=== PATIENT | female | born 1950 | race African-American/Black ===

== ENCOUNTER → 2017-03-11 | Outpatient (CLI) | payer MEDICARE, BC | END | disposition home or self-care (01) | LOC: US 14:00 | DX: M47.896 Other spondylosis, lumbar region (principal); M48.061 Spinal stenosis, lumbar region without neurogenic claudication; M25.78 Osteophyte, vertebrae; R10.9 Unspecified abdominal pain | CPT/HCPCS: 72100; 76770 ==

== ENCOUNTER 2020-03-18 10:00 | Inpatient (IN) | payer MEDICARE, BC ==
[~2020-03-18] VITALS: Ht 175.3 cm; Wt 107.7 kg
--- NOTE | 2020-03-18 10:26 | ED.ADGEN ---
Past Medical History Past Medical History: High Cholesterol, Hypertension Past Surgical History: Cholecystectomy, Hysterectomy Smoking Status: Never Smoker Alcohol Use: Rarely General Adult EDM: Chief Complaint: DIZZY/LIGHT HEADED HPI: HPI: Patient is a 69 year old female who arrives ambulatory to the emergency depart ment complaining of dizziness and palpitations just prior to arrival. Patient reports that 22 hours yesterday evening she noticed that she felt dizzy as she could not maintain her bearings. The patient reportedly awoke today and states she felt exactly the same way. Patient states she is alternate between feeling dizzy and lightheaded during this time. Despite this she denies any history of chest pain. She further denies feeling short of breath. After placing the patient on the monitor it does appear the patient is in atrial fibrillation with rapid ventricular response which is new for her. The patient denies any history of focal weakness, sensory deficit or neurological change otherwise. She further denies any history of headache or recent illness. She is awake, alert and nontoxic-appearing. Review of Systems: Review of Systems: Constitutional: Denies fever or chills. [] Eyes: Denies change in visual acuity. [] HENT: Denies nasal congestion or sore throat. [] Respiratory: Denies cough or shortness of breath. [] Cardiovascular: Denies chest pain or edema. [] GI: Denies abdominal pain, nausea, vomiting, bloody stools or diarrhea. [] : Denies dysuria. [] Musculoskeletal: Denies back pain or joint pain. [] Integument: Denies rash. [] Neurologic: Reports to feeling dizzy/lightheaded. Denies headache, focal weakness or sensory changes. [] Endocrine: Denies polyuria or polydipsia. [] Lymphatic: Denies swollen glands. [] Psychiatric: Denies depression or anxiety. [] Family History: Family History: Noncontributory Current Medications: Current Medications Medications (Trade) Dose Ordered Sig/Jennifer Start Time Stop Time Status Last Admin Dose Admin Diltiazem HCl (Cardizem Iv Push) 20 mg 1X ONCE 03/18/20 10:45 03/18/20 10:46 DC 03/18/20 10:36 20 MG Diltiazem HCl 125 mg/Sodium Chloride 125 ml @ 10 mls/hr 1X ONCE 03/18/20 09:45 03/18/20 22:14 03/18/20 10:43 10 MLS/HR Enoxaparin Sodium (Lovenox 100mg Syringe) 110 mg 1X ONCE 03/18/20 11:15 03/18/20 11:16 UNV Ondansetron HCl (Zofran) 4 mg PRN Q8HRS PRN 03/18/20 11:15 03/19/20 11:14 UNV Allergies: Allergies: Allergies Coded Allergies Type Severity Reaction Last Updated Verified No Known Drug Allergies 03/18/20 No Physical Exam: PE: Constitutional: Well developed, well nourished, no acute distress, non-toxic appearance. [] HENT: Normocephalic, atraumatic, bilateral external ears normal, oropharynx moist, no oral exudates, nose normal. [] Eyes: PERRLA, EOMI, conjunctiva normal, no discharge. [] Neck: Normal range of motion, no tenderness, supple, no stridor. [] Cardiovascular: Tachycardia with a regular rhythm. no rubs or murmur [] Lungs & Thorax: Bilateral breath sounds clear to auscultation [] Abdomen: Bowel sounds normal, soft, no tenderness, no masses, no pulsatile masses. [] Skin: Warm, dry, no erythema, no rash. [] Back: No tenderness, no CVA tenderness. [] Extremities: No tenderness, no cyanosis, no clubbing, ROM intact, no edema. [] Neurologic: Alert and oriented X 3, normal motor function, normal sensory function, no focal deficits noted. [] Psychologic: Affect normal, judgement normal, mood normal. [] Current Patient Data: Labs: Laboratory Tests Test 03/18/20 10:20 White Blood Count 7.3 x10^3/uL (4.0-11.0) Red Blood Count 4.69 x10^6/uL (3.50-5.40) Hemoglobin 14.0 g/dL (12.0-15.5) Hematocrit 41.4 % (36.0-47.0) Mean Corpuscular Volume 88 fL (79-100) Mean Corpuscular Hemoglobin 30 pg (25-35) Mean Corpuscular Hemoglobin Concent 34 g/dL (31-37) Red Cell Distribution Width 13.7 % (11.5-14.5) Platelet Count 275 x10^3/uL (140-400) Neutrophils (%) (Auto) 79 % (31-73) H Lymphocytes (%) (Auto) 14 % (24-48) L Monocytes (%) (Auto) 6 % (0-9) Eosinophils (%) (Auto) 0 % (0-3) Basophils (%) (Auto) 1 % (0-3) Neutrophils # (Auto) 5.8 x10^3/uL (1.8-7.7) Lymphocytes # (Auto) 1.0 x10^3/uL (1.0-4.8) Monocytes # (Auto) 0.4 x10^3/uL (0.0-1.1) Eosinophils # (Auto) 0.0 x10^3/uL (0.0-0.7) Basophils # (Auto) 0.1 x10^3/uL (0.0-0.2) Prothrombin Time 13.5 SEC (11.7-14.0) Prothrombin Time INR 1.1 (0.8-1.1) Sodium Level 142 mmol/L (136-145) Potassium Level 3.9 mmol/L (3.5-5.1) Chloride Level 106 mmol/L (98-107) Carbon Dioxide Level 24 mmol/L (21-32) Anion Gap 12 (6-14) Blood Urea Nitrogen 10 mg/dL (7-20) Creatinine 0.9 mg/dL (0.6-1.0) Estimated GFR (Cockcroft-Gault) 74.9 BUN/Creatinine Ratio 11 (6-20) Glucose Level 131 mg/dL (70-99) H Calcium Level 9.8 mg/dL (8.5-10.1) Total Bilirubin 0.5 mg/dL (0.2-1.0) Aspartate Amino Transferase (AST) 18 U/L (15-37) Alanine Aminotransferase (ALT) 17 U/L (14-59) Alkaline Phosphatase 53 U/L (46-116) Troponin I Quantitative < 0.017 ng/mL (0.000-0.055) LV-Zhw-J-Type Natriuretic Peptide 782 pg/mL (0-124) H Total Protein 7.4 g/dL (6.4-8.2) Albumin 3.9 g/dL (3.4-5.0) Albumin/Globulin Ratio 1.1 (1.0-1.7) Laboratory Tests 03/18/20 10:20 Laboratory Tests 03/18/20 10:20 Vital Signs: Vital Signs Date Time Temp Pulse Resp B/P (MAP) Pulse Ox O2 Delivery O2 Flow Rate FiO2 03/18/20 10:36 124 144/90 03/18/20 10:14 99.0 20 97 Room Air 99.0 EKG: EKG: [] EKG was obtained at 1008 hrs. It does appear that the patient has atrial fibrillation with rapid ventricular response with a ventricular rate of 145 bpm. There does appear to be some is T wave depression in the lateral leads however this may be related to ventricular strain relative to the cardiac dysrhythmia. There are no signs of ectopy or ST/T wave elevation. Heart Score: HEART Score for Chest Pain: HEART Score for Chest Pain Response (Comments) Value History Slighlty/Non-Suspicious 0 ECG Nonspecific Repolarizatio 1 Age < 45 0 Risk Factors 1 or 2 Risk Factors 1 Troponin < Normal Limit 0 Total 2 Risk Factors: Risk Factors: DM, Current or recent (<one month) smoker, HTN, HLP, family history of CAD, obesity. Risk Scores: Score 0 - 3: 2.5% MACE over next 6 weeks - Discharge Home Score 4 - 6: 20.3% MACE over next 6 weeks - Admit for Clinical Observation Score 7 - 10: 72.7% MACE over next 6 weeks - Early Invasive Strategies Radiology/Procedures: Radiology/Procedures: [] Impression: [facility] [address], [place] [id number] IMAGING REPORT Signed PATIENT: HUBER MESSINA ACCOUNT: [id number] : 1950 LOCATION: ER AGE: 69 SEX: F EXAM STATUS: PRE ER ORD. PHYSICIAN: NURY SETH DO REASON: Palpitations PROCEDURE: PORTABLE CHEST 1V XR CHEST 1V History: Reason: Palpitations / Spl. Instructions: / History: Comparison: None. Findings: No consolidation or pleural effusion. Normal heart size. No pneumothorax. Impression: 1. No acute cardiopulmonary process. Electronically signed by: Herbert Plascencia DO (03/18/2020 10:38 AM) [id number] DICTATED and SIGNED BY: HERBERT PLASCENCIA DO DATE: 03/18/20 [id number] 0 Course & Med Decision Making: Course & Med Decision Making Pertinent Labs and Imaging studies reviewed. (See chart for details) [] Dragon Disclaimer: Dragon Disclaimer: This electronic medical record was generated, in whole or in part, using a voice recognition dictation system. Departure Departure Impression: Primary Impression: Atrial fibrillation with rapid ventricular response Disposition: ADMITTED INPT THIS HOSP Admitting Physician: Sara Huynh Condition: IMPROVED Referrals: SARA HUYNH MD (PCP) NURY SETH DO Mar 18, 2020 10:25
[2020-03-18 10:28] LABS: BASO # 0.1 x10^3/uL (0.0-0.2); BASO % 1 % (0-3); EOS % 0 % (0-3); HEMATOCRIT 41.4 % (36.0-47.0); LYMPH % 14 % (24-48); MEAN CORPUSCULAR HEMOGLOBIN 30 pg (25-35); MEAN CORPUSCULAR HGB CONC 34 g/dL (31-37); MEAN CORPUSCULAR VOLUME 88 fL (79-100); MONO # 0.4 x10^3/uL (0.0-1.1); MONO % 6 % (0-9); NEUT # 5.8 x10^3/uL (1.8-7.7); NEUT % 79 % (31-73); PLATELET COUNT 275 x10^3/uL (140-400); RED BLOOD COUNT 4.69 x10^6/uL (3.50-5.40); RED CELL DISTRIBUTION WIDTH 13.7 % (11.5-14.5); WHITE BLOOD COUNT 7.3 x10^3/uL (4.0-11.0)
[2020-03-18 10:39] LABS: CALCIUM 9.8 mg/dL (8.5-10.1); CREATININE 0.9 mg/dL (0.6-1.0); GFR 74.9; POTASSIUM 3.9 mmol/L (3.5-5.1)
--- NOTE | 2020-03-18 10:41 | RAD ---
XR CHEST 1V History: Reason: Palpitations / Spl. Instructions: / History: Comparison: None. Findings: No consolidation or pleural effusion. Normal heart size. No pneumothorax. Impression: 1. No acute cardiopulmonary process. Electronically signed by: Herbert Plascencia DO (03/18/2020 10:38 AM) [id number]
[2020-03-18 10:44] LABS: PROTHROMBIN TIME PATIENT 13.5 SEC (11.7-14.0)
[2020-03-18 10:45] LABS: ALBUMIN 3.9 g/dL (3.4-5.0); ALBUMIN/GLOBULIN RATIO 1.1 (1.0-1.7); TOTAL BILIRUBIN 0.5 mg/dL (0.2-1.0); TOTAL PROTEIN 7.4 g/dL (6.4-8.2)
[2020-03-18] MEDS ORDERED: ONDANSETRON PF 4 MG/2 ML VIAL. IV PRN (11:15)
[2020-03-18 11:45] VITALS: BP 168/101
[2020-03-18 12:45] VITALS: BP 165/85
--- NOTE | 2020-03-18 12:47 | PDOC2 ---
DANNIELLE DAVALOS INSURANCE HEALTHCARE CONSULTANT 03/18/20 1247: CARDIAC CONSULT DATE OF CONSULT Date of Consult DATE: 03/18/20 TIME: 12:34 REASON FOR CONSULT Reason for Consult: AFIB with RVR REFERRING PHYSICIAN Referring Physician: Dr. Artis SOURCE Source: Chart review, Patient HISTORY OF PRESENT ILLNESS HISTORY OF PRESENT ILLNESS This is a 69 yo female who presented secondary to dizziness. Patient reports that she began feeling dizzy last night. is at home with Alzheimer's. Is under a lot of daily stress caring for him. He took a fall last night, which was quite stressful for her. Got him situated and eventually laid down. Began feeling dizzy, lightheaded. Denies any palpitations. Laid there for awhile and continued to feel dizzy. Call [id number], who is retired MD. He took her blood pressure and was noted in the 190 range. Encouraged her to go to the ED for further evaluation and treatment. Was noted in AFIB with RVR upon arrival. No previous history of AFIB known. Does report having occasional, brief episodes of dizziness over the last several weeks, but nothing significant. Cardizem gtt initiated in ED. Remains in AFIB, but rate controlled. Dizziness has resolved. PAST MEDICAL HISTORY Cardiovascular: HTN, Hyperlipidemia Pulmonary: Asthma PAST SURGICAL HISTORY Past Surgical History: Hysterectomy FAMILY HISTORY Family History: Heart Disease SOCIAL HISTORY Smoke: No ALCOHOL: occassional Drugs: None Lives: with Family CURRENT MEDICATIONS CURRENT MEDICATIONS Current Medications Medications (Trade) Dose Ordered Sig/Jennifer Route PRN Reason Start Time Stop Time Status Last Admin Dose Admin Diltiazem HCl (Cardizem Iv Push) 20 mg 1X ONCE IVP 03/18/20 10:45 03/18/20 10:46 DC 03/18/20 10:36 Diltiazem HCl 125 mg/Sodium Chloride 125 ml @ 10 mls/hr 1X ONCE IV 03/18/20 09:45 03/18/20 22:14 03/18/20 10:43 Enoxaparin Sodium (Lovenox 120mg Syringe) 110 mg 1X ONCE SQ 03/18/20 11:15 03/18/20 11:16 DC 03/18/20 11:31 ALLERGIES ALLERGIES: Coded Allergies: No Known Drug Allergies (Unverified , 03/18/20) ROS Review of System 14 point ROS conducted with pertinent positives noted above in HPI. PHYSICAL EXAM General: Alert, Oriented X3, Cooperative, No acute distress HEENT: Atraumatic Lungs: Clear to auscultation Heart: Other (IRRR; tele AFIB, rate controlled ) Abdomen: Soft, No tenderness Extremities: No edema, Normal pulses Skin: No significant lesion Neuro: Normal speech, Sensation intact Psych/Mental Status: Mental status NL, Mood NL MUSCULOSKELETAL: Osteoarthritic changes both hands VITALS/I&O VITALS/I&O: Vital Signs Date Time Temp Pulse Resp B/P (MAP) Pulse Ox O2 Delivery O2 Flow Rate FiO2 03/18/20 11:45 98.6 87 14 168/101 (123) 99 Room Air 98.6 LABS Lab: Laboratory Tests Test 03/18/20 10:20 White Blood Count 7.3 x10^3/uL (4.0-11.0) Red Blood Count 4.69 x10^6/uL (3.50-5.40) Hemoglobin 14.0 g/dL (12.0-15.5) Hematocrit 41.4 % (36.0-47.0) Mean Corpuscular Volume 88 fL (79-100) Mean Corpuscular Hemoglobin 30 pg (25-35) Mean Corpuscular Hemoglobin Concent 34 g/dL (31-37) Red Cell Distribution Width 13.7 % (11.5-14.5) Platelet Count 275 x10^3/uL (140-400) Neutrophils (%) (Auto) 79 % (31-73) H Lymphocytes (%) (Auto) 14 % (24-48) L Monocytes (%) (Auto) 6 % (0-9) Eosinophils (%) (Auto) 0 % (0-3) Basophils (%) (Auto) 1 % (0-3) Neutrophils # (Auto) 5.8 x10^3/uL (1.8-7.7) Lymphocytes # (Auto) 1.0 x10^3/uL (1.0-4.8) Monocytes # (Auto) 0.4 x10^3/uL (0.0-1.1) Eosinophils # (Auto) 0.0 x10^3/uL (0.0-0.7) Basophils # (Auto) 0.1 x10^3/uL (0.0-0.2) Prothrombin Time 13.5 SEC (11.7-14.0) Prothrombin Time INR 1.1 (0.8-1.1) Activated Partial Thromboplast Time 30 SEC (24-38) Sodium Level 142 mmol/L (136-145) Potassium Level 3.9 mmol/L (3.5-5.1) Chloride Level 106 mmol/L (98-107) Carbon Dioxide Level 24 mmol/L (21-32) Anion Gap 12 (6-14) Blood Urea Nitrogen 10 mg/dL (7-20) Creatinine 0.9 mg/dL (0.6-1.0) Estimated GFR (Cockcroft-Gault) 74.9 BUN/Creatinine Ratio 11 (6-20) Glucose Level 131 mg/dL (70-99) H Calcium Level 9.8 mg/dL (8.5-10.1) Total Bilirubin 0.5 mg/dL (0.2-1.0) Aspartate Amino Transferase (AST) 18 U/L (15-37) Alanine Aminotransferase (ALT) 17 U/L (14-59) Alkaline Phosphatase 53 U/L (46-116) Troponin I Quantitative < 0.017 ng/mL (0.000-0.055) WG-Bne-B-Type Natriuretic Peptide 782 pg/mL (0-124) H Total Protein 7.4 g/dL (6.4-8.2) Albumin 3.9 g/dL (3.4-5.0) Albumin/Globulin Ratio 1.1 (1.0-1.7) Laboratory Tests 03/18/20 10:20 Laboratory Tests 03/18/20 10:20 ASSESSMENT/PLAN ASSESSMENT/PLAN 1. Dizziness; most probable secondary to RVR 2. New onset AFIB with RVR; remain in AFIB, rate controlled on Cardizem gtt 3. Hypertension; mildly elevated 4. Hyperlipidemia 5. Elevated glucose Recommendations Start oral Cardizem, unless significant LV dysfunction is noted. Titrate off Cardizem gtt Echo to assess LV systolic function TSH, lipids, A1C [id number] 3 correlating with at 3.2% risk for stroke per year. Would recommend OAC with Eliquis for stroke prophylaxis. R/b/a discussed with patient and she is agreeable Outpatient cardioversion following 3-4 weeks of OAC if patient remains in AFIb Consider outpatient ischemic evaluation Will monitor overnight Supportive care AMAN POWELL MD 03/18/20 1833: CARDIAC CONSULT ASSESSMENT/PLAN ASSESSMENT/PLAN Patient seen and examined I agree with our nurse practitioners plan as above. New onset AFIB with RVR; remains in AFIB, rate controlled on Cardizem gtt, changing to oral Cardizem. Echocardiogram today. TSH. Anticoagulation. Possible future cardioversion. Hypertension; mildly elevated. Oral Cardizem as above. Hyperlipidemia. Continue medications. Check lipids. DANNIELLE DAVALOS APRN Mar 18, 2020 12:47 AMAN POWELL MD Mar 18, 2020 18:33
[2020-03-18 13:18] LABS: CHOLESTEROL/HDL RATIO 2.5
[2020-03-18] MEDS ORDERED: RAMI2.5C41 PO (14:47)
[2020-03-18] MEDS ORDERED: HYDR12.575 PO (14:47)
[2020-03-18] MEDS ORDERED: ATOR10TA PO (14:47)
[2020-03-18 15:00] VITALS: BP 175/84
--- NOTE | 2020-03-18 16:17 | EKG ---
[address] [place] [address] Test Date: 2020-03-18 Test Time: 10:08:19 Pat Name: HUBER MESSINA Department: Room: Gender: F Disc Inspector: : 1950 Requested By: NURY SETH Order Number: [id number] Reading MD: Measurements Intervals [place] Rate: 145 P: DE: QRS: 24 QRSD: 72 T: -90 QT: 278 QTc: 434 Interpretive Statements IRREGULAR RHYTHM, NO P-WAVE FOUND ST & T ABNORMALITY, CONSIDER LATERAL ISCHEMIA OR LEFT VENTRICULAR STRAIN INFEROLATERAL ISCHEMIA OR LEFT VENTRICULAR STRAIN ABNORMAL ECG RI6.01 No previous ECG available for comparison
[2020-03-18] MEDS ORDERED: ANTI-COAG MONITOR BY PHARMACY. MC PRN (16:45)
[2020-03-18] MEDS: hydroCHLOROthiazide 12.5 MG CAPSULE PO SCH (17:25)
[2020-03-18 19:00] VITALS: BP 169/94
--- NOTE | 2020-03-18 19:20 | NUR ---
Pt in bed assessment completed vss poc explained pt denied pain will resume care and continue to monitor pt.Call light in reach.
[2020-03-18] MEDS ORDERED: ATORVASTATIN CALCIUM 10 MG TABLET. PO SCH (21:00)
[2020-03-18] MEDS ORDERED: APIXABAN 5 MG TABLET. PO SCH (21:00)
[2020-03-18] MEDS: APIXABAN 5 MG TABLET. PO SCH (21:18)
[2020-03-18 23:00] VITALS: BP 178/98
--- NOTE | 2020-03-18 23:49 | NUR ---
Call placed to re: pt bp 178/98
[2020-03-19] MEDS ORDERED: LISINOPRIL 5 MG TABLET. PO ONE (00:15)
[2020-03-19 01:09] LABS: HEMOGLOBIN A1C 5.9 % (4.8-5.6)
[2020-03-19 02:48] VITALS: BP 156/97
[2020-03-19 05:31] LABS: BASO # 0.1 x10^3/uL (0.0-0.2); BASO % 1 % (0-3); EOS % 1 % (0-3); HEMATOCRIT 39.8 % (36.0-47.0); HEMOGLOBIN 13.4 g/dL (12.0-15.5); LYMPH % 29 % (24-48); MEAN CORPUSCULAR HEMOGLOBIN 30 pg (25-35); MEAN CORPUSCULAR HGB CONC 34 g/dL (31-37); MEAN CORPUSCULAR VOLUME 88 fL (79-100); MONO # 0.6 x10^3/uL (0.0-1.1); MONO % 9 % (0-9); NEUT # 4.2 x10^3/uL (1.8-7.7); NEUT % 61 % (31-73); PLATELET COUNT 276 x10^3/uL (140-400); RED BLOOD COUNT 4.52 x10^6/uL (3.50-5.40); RED CELL DISTRIBUTION WIDTH 13.9 % (11.5-14.5); WHITE BLOOD COUNT 6.8 x10^3/uL (4.0-11.0)
[2020-03-19 05:58] LABS: CALCIUM 9.2 mg/dL (8.5-10.1); CREATININE 0.8 mg/dL (0.6-1.0); GFR 85.8; POTASSIUM 3.5 mmol/L (3.5-5.1)
[2020-03-19 07:00] VITALS: BP 138/72
--- NOTE | 2020-03-19 08:36 | PDOC ---
PROGRESS NOTES Date of Service: DATE: 03/19/20 TIME: 08:36 Objective Objective Vital Signs Date Time Temp Pulse Resp B/P (MAP) Pulse Ox O2 Delivery O2 Flow Rate FiO2 03/19/20 08:00 Room Air 03/19/20 02:48 98.6 87 16 156/97 (116) 96 98.6 Intake and Output 03/19/20 06:59 Intake Total 1200 ml Output Total 300 ml Balance 900 ml Intake Oral 1200 ml Output Urine Total 300 ml # Voids 2 Physical Exam Abdomen: Soft, No tenderness Heart: Other (IRRR; tele AFIB, rate controlled ) Extremities: No edema, Normal pulses General: Alert, Oriented X3, Cooperative, No acute distress HEENT: Atraumatic Lungs: Clear to auscultation MUSCULOSKELETAL: Osteoarthritic changes both hands Neuro: Normal speech, Sensation intact Psych/Mental Status: Mental status NL, Mood NL Skin: No significant lesion Diagnosis Problem List Problems Medical Problems: (1) Atrial fibrillation with rapid ventricular response Status: Acute Assessment Assessment Problems Medical Problems: (1) Atrial fibrillation with rapid ventricular response Status: Acute Plan Plan of Care Problems Medical Problems: (1) Atrial fibrillation with rapid ventricular response Status: Acute Comment Review of Relevant I have reviewed the following items poncho (where applicable) has been applied. Labs Laboratory Tests Test 03/18/20 10:20 03/18/20 10:25 03/18/20 13:10 03/18/20 16:45 White Blood Count 7.3 x10^3/uL (4.0-11.0) Red Blood Count 4.69 x10^6/uL (3.50-5.40) Hemoglobin 14.0 g/dL (12.0-15.5) Hematocrit 41.4 % (36.0-47.0) Mean Corpuscular Volume 88 fL (79-100) Mean Corpuscular Hemoglobin 30 pg (25-35) Mean Corpuscular Hemoglobin Concent 34 g/dL (31-37) Red Cell Distribution Width 13.7 % (11.5-14.5) Platelet Count 275 x10^3/uL (140-400) Neutrophils (%) (Auto) 79 % (31-73) Lymphocytes (%) (Auto) 14 % (24-48) Monocytes (%) (Auto) 6 % (0-9) Eosinophils (%) (Auto) 0 % (0-3) Basophils (%) (Auto) 1 % (0-3) Neutrophils # (Auto) 5.8 x10^3/uL (1.8-7.7) Lymphocytes # (Auto) 1.0 x10^3/uL (1.0-4.8) Monocytes # (Auto) 0.4 x10^3/uL (0.0-1.1) Eosinophils # (Auto) 0.0 x10^3/uL (0.0-0.7) Basophils # (Auto) 0.1 x10^3/uL (0.0-0.2) Prothrombin Time 13.5 SEC (11.7-14.0) Prothromb Time International Ratio 1.1 (0.8-1.1) Activated Partial Thromboplast Time 30 SEC (24-38) Sodium Level 142 mmol/L (136-145) Potassium Level 3.9 mmol/L (3.5-5.1) Chloride Level 106 mmol/L (98-107) Carbon Dioxide Level 24 mmol/L (21-32) Anion Gap 12 (6-14) Blood Urea Nitrogen 10 mg/dL (7-20) Creatinine 0.9 mg/dL (0.6-1.0) Estimated GFR (Cockcroft-Gault) 74.9 BUN/Creatinine Ratio 11 (6-20) Glucose Level 131 mg/dL (70-99) Hemoglobin A1c 5.9 % (4.8-5.6) Calcium Level 9.8 mg/dL (8.5-10.1) Total Bilirubin 0.5 mg/dL (0.2-1.0) Aspartate Amino Transf (AST/SGOT) 18 U/L (15-37) Alanine Aminotransferase (ALT/SGPT) 17 U/L (14-59) Alkaline Phosphatase 53 U/L (46-116) Troponin I Quantitative < 0.017 ng/mL (0.000-0.055) < 0.017 ng/mL (0.000-0.055) < 0.017 ng/mL (0.000-0.055) QZ-Bwc-T-Type Natriuretic Peptide 782 pg/mL (0-124) Total Protein 7.4 g/dL (6.4-8.2) Albumin 3.9 g/dL (3.4-5.0) Albumin/Globulin Ratio 1.1 (1.0-1.7) Triglycerides Level 107 mg/dL (0-150) Cholesterol Level 209 mg/dL (0-200) LDL Cholesterol, Calculated 106 mg/dL (0-100) VLDL Cholesterol, Calculated 21 mg/dL (0-40) Non-HDL Cholesterol Calculated 127 mg/dL (0-129) HDL Cholesterol 82 mg/dL (40-60) Cholesterol/HDL Ratio 2.5 Coronavirus (PCR) Not detected (Not Detected) Test 03/19/20 04:50 White Blood Count 6.8 x10^3/uL (4.0-11.0) Red Blood Count 4.52 x10^6/uL (3.50-5.40) Hemoglobin 13.4 g/dL (12.0-15.5) Hematocrit 39.8 % (36.0-47.0) Mean Corpuscular Volume 88 fL (79-100) Mean Corpuscular Hemoglobin 30 pg (25-35) Mean Corpuscular Hemoglobin Concent 34 g/dL (31-37) Red Cell Distribution Width 13.9 % (11.5-14.5) Platelet Count 276 x10^3/uL (140-400) Neutrophils (%) (Auto) 61 % (31-73) Lymphocytes (%) (Auto) 29 % (24-48) Monocytes (%) (Auto) 9 % (0-9) Eosinophils (%) (Auto) 1 % (0-3) Basophils (%) (Auto) 1 % (0-3) Neutrophils # (Auto) 4.2 x10^3/uL (1.8-7.7) Lymphocytes # (Auto) 2.0 x10^3/uL (1.0-4.8) Monocytes # (Auto) 0.6 x10^3/uL (0.0-1.1) Eosinophils # (Auto) 0.0 x10^3/uL (0.0-0.7) Basophils # (Auto) 0.1 x10^3/uL (0.0-0.2) Sodium Level 142 mmol/L (136-145) Potassium Level 3.5 mmol/L (3.5-5.1) Chloride Level 105 mmol/L (98-107) Carbon Dioxide Level 26 mmol/L (21-32) Anion Gap 11 (6-14) Blood Urea Nitrogen 9 mg/dL (7-20) Creatinine 0.8 mg/dL (0.6-1.0) Estimated GFR (Cockcroft-Gault) 85.8 Glucose Level 100 mg/dL (70-99) Calcium Level 9.2 mg/dL (8.5-10.1) Thyroid Stimulating Hormone (TSH) 1.211 uIU/mL (0.358-3.74) Medications Current Medications Apixaban (Eliquis) 5 mg BID PO ; Start 03/18/20 at 21:00; Status UNV Apixaban (Eliquis) 5 mg BID PO Last administered on 03/18/20at 21:18; Start 03/18/20 at 23:00 Atorvastatin Calcium (Lipitor) 10 mg QHS PO Last administered on 03/18/20at 21:18; Start 03/18/20 at 21:00 Diltiazem HCl (Cardizem 24hr Cd) 180 mg DAILY PO Last administered on 03/18/20at 12:53; Start 03/18/20 at 13:00 Diltiazem HCl (Cardizem Iv Push) 20 mg 1X ONCE IVP Last administered on 03/18/20at 10:36; Start 03/18/20 at 10:45; Stop 03/18/20 at 10:46; Status DC Diltiazem HCl 125 mg/Sodium Chloride 125 ml @ 10 mls/hr 1X ONCE IV Last administered on 03/18/20at 10:43; Start 03/18/20 at 09:45; Stop 03/18/20 at 15:53; Status DC Enoxaparin Sodium (Lovenox 120mg Syringe) 110 mg 1X ONCE SQ Last administered on 03/18/20at 11:31; Start 03/18/20 at 11:15; Stop 03/18/20 at 11:16; Status DC Hydrochlorothiazide (Microzide) 12.5 mg DAILY PO Last administered on 03/18/20at 17:25; Start 03/18/20 at 17:00 Info (Anti-Coagulation Monitoring By Pharmacy) 1 each PRN DAILY PRN MC SEE COMMENTS; Start 03/18/20 at 16:45 Lisinopril (Prinivil) 5 mg 1X ONCE PO Last administered on 03/19/20at 00:16; Start 03/19/20 at 00:15; Stop 03/19/20 at 00:16; Status DC Lisinopril (Prinivil) 5 mg DAILY PO ; Start 03/19/20 at 09:00 Ondansetron HCl (Zofran) 4 mg PRN Q8HRS PRN IV NAUSEA/VOMITING; Start 03/18/20 at 11:15; Stop 03/19/20 at 11:14 Vitals/I & O Vital Sign - Last 24 Hours 03/18/20 03/18/20 03/18/20 03/18/20 10:14 10:36 10:36 10:41 Temp 99.0 99.0 Pulse 143 124 124 98 Resp 20 B/P (MAP) 144/90 (108) 144/90 Pulse Ox 97 97 97 O2 Delivery Room Air 03/18/20 03/18/20 03/18/20 03/18/20 10:51 11:11 11:26 11:45 Temp 98.6 98.6 Pulse 88 84 92 87 Resp 14 B/P (MAP) 168/101 (123) Pulse Ox 98 98 98 99 O2 Delivery Room Air 03/18/20 03/18/20 03/18/20 03/18/20 12:45 12:53 15:00 19:00 Temp 97.1 98.3 97.1 98.3 Pulse 86 87 92 92 Resp 14 18 B/P (MAP) 165/85 (111) 168/101 175/84 (114) 169/94 (119) Pulse Ox 100 98 O2 Delivery Room Air Room Air Room Air 03/18/20 03/18/20 03/19/20 03/19/20 19:20 23:00 00:16 02:48 Temp 97.9 98.6 97.9 98.6 Pulse 101 101 87 Resp 20 16 B/P (MAP) 178/98 (124) 178/98 156/97 (116) Pulse Ox 97 96 O2 Delivery Room Air Room Air Room Air 03/19/20 08:00 O2 Delivery Room Air Intake and Output 03/18/20 03/18/20 03/19/20 14:59 22:59 06:59 Intake Total 400 ml 800 ml Output Total 300 ml Balance 100 ml 800 ml Justifications for Admission Other Justification TYESHA HUYNH MD Mar 19, 2020 08:36
[2020-03-19] MEDS ORDERED: LISINOPRIL 5 MG TABLET. PO SCH (09:00)
--- NOTE | 2020-03-19 09:16 | PDOC ---
CARDIO Progress Notes Date and Time Date of Service 03/19/20 Time of Evaluation 0900 Subjective Subjective: No Chest Pain, No shortness of breath, No Palpitations, No Dizziness Vitals Vitals Vital Signs Date Time Temp Pulse Resp B/P (MAP) Pulse Ox O2 Delivery O2 Flow Rate FiO2 03/19/20 08:00 Room Air 03/19/20 02:48 98.6 87 16 156/97 (116) 96 98.6 Weight Weight [ ] Input and Output Intake and Output l Intake and Output 03/19/20 07:00 Intake Total 1200 ml Output Total 300 ml Balance 900 ml Intake Oral 1200 ml Output Urine Total 300 ml # Voids 2 Laboratory Labs Laboratory Tests Test 03/18/20 10:20 03/18/20 10:25 03/18/20 13:10 03/18/20 16:45 White Blood Count 7.3 x10^3/uL (4.0-11.0) Red Blood Count 4.69 x10^6/uL (3.50-5.40) Hemoglobin 14.0 g/dL (12.0-15.5) Hematocrit 41.4 % (36.0-47.0) Mean Corpuscular Volume 88 fL (79-100) Mean Corpuscular Hemoglobin 30 pg (25-35) Mean Corpuscular Hemoglobin Concent 34 g/dL (31-37) Red Cell Distribution Width 13.7 % (11.5-14.5) Platelet Count 275 x10^3/uL (140-400) Neutrophils (%) (Auto) 79 % (31-73) Lymphocytes (%) (Auto) 14 % (24-48) Monocytes (%) (Auto) 6 % (0-9) Eosinophils (%) (Auto) 0 % (0-3) Basophils (%) (Auto) 1 % (0-3) Neutrophils # (Auto) 5.8 x10^3/uL (1.8-7.7) Lymphocytes # (Auto) 1.0 x10^3/uL (1.0-4.8) Monocytes # (Auto) 0.4 x10^3/uL (0.0-1.1) Eosinophils # (Auto) 0.0 x10^3/uL (0.0-0.7) Basophils # (Auto) 0.1 x10^3/uL (0.0-0.2) Prothrombin Time 13.5 SEC (11.7-14.0) Prothromb Time International Ratio 1.1 (0.8-1.1) Activated Partial Thromboplast Time 30 SEC (24-38) Sodium Level 142 mmol/L (136-145) Potassium Level 3.9 mmol/L (3.5-5.1) Chloride Level 106 mmol/L (98-107) Carbon Dioxide Level 24 mmol/L (21-32) Anion Gap 12 (6-14) Blood Urea Nitrogen 10 mg/dL (7-20) Creatinine 0.9 mg/dL (0.6-1.0) Estimated GFR (Cockcroft-Gault) 74.9 BUN/Creatinine Ratio 11 (6-20) Glucose Level 131 mg/dL (70-99) Hemoglobin A1c 5.9 % (4.8-5.6) Calcium Level 9.8 mg/dL (8.5-10.1) Total Bilirubin 0.5 mg/dL (0.2-1.0) Aspartate Amino Transf (AST/SGOT) 18 U/L (15-37) Alanine Aminotransferase (ALT/SGPT) 17 U/L (14-59) Alkaline Phosphatase 53 U/L (46-116) Troponin I Quantitative < 0.017 ng/mL (0.000-0.055) < 0.017 ng/mL (0.000-0.055) < 0.017 ng/mL (0.000-0.055) SB-Tku-K-Type Natriuretic Peptide 782 pg/mL (0-124) Total Protein 7.4 g/dL (6.4-8.2) Albumin 3.9 g/dL (3.4-5.0) Albumin/Globulin Ratio 1.1 (1.0-1.7) Triglycerides Level 107 mg/dL (0-150) Cholesterol Level 209 mg/dL (0-200) LDL Cholesterol, Calculated 106 mg/dL (0-100) VLDL Cholesterol, Calculated 21 mg/dL (0-40) Non-HDL Cholesterol Calculated 127 mg/dL (0-129) HDL Cholesterol 82 mg/dL (40-60) Cholesterol/HDL Ratio 2.5 Coronavirus (PCR) Not detected (Not Detected) Test 03/19/20 04:50 White Blood Count 6.8 x10^3/uL (4.0-11.0) Red Blood Count 4.52 x10^6/uL (3.50-5.40) Hemoglobin 13.4 g/dL (12.0-15.5) Hematocrit 39.8 % (36.0-47.0) Mean Corpuscular Volume 88 fL (79-100) Mean Corpuscular Hemoglobin 30 pg (25-35) Mean Corpuscular Hemoglobin Concent 34 g/dL (31-37) Red Cell Distribution Width 13.9 % (11.5-14.5) Platelet Count 276 x10^3/uL (140-400) Neutrophils (%) (Auto) 61 % (31-73) Lymphocytes (%) (Auto) 29 % (24-48) Monocytes (%) (Auto) 9 % (0-9) Eosinophils (%) (Auto) 1 % (0-3) Basophils (%) (Auto) 1 % (0-3) Neutrophils # (Auto) 4.2 x10^3/uL (1.8-7.7) Lymphocytes # (Auto) 2.0 x10^3/uL (1.0-4.8) Monocytes # (Auto) 0.6 x10^3/uL (0.0-1.1) Eosinophils # (Auto) 0.0 x10^3/uL (0.0-0.7) Basophils # (Auto) 0.1 x10^3/uL (0.0-0.2) Sodium Level 142 mmol/L (136-145) Potassium Level 3.5 mmol/L (3.5-5.1) Chloride Level 105 mmol/L (98-107) Carbon Dioxide Level 26 mmol/L (21-32) Anion Gap 11 (6-14) Blood Urea Nitrogen 9 mg/dL (7-20) Creatinine 0.8 mg/dL (0.6-1.0) Estimated GFR (Cockcroft-Gault) 85.8 Glucose Level 100 mg/dL (70-99) Calcium Level 9.2 mg/dL (8.5-10.1) Thyroid Stimulating Hormone (TSH) 1.211 uIU/mL (0.358-3.74) Physical Exam HEENT: Neck Supple W Full Motion Chest: Symmetric LUNGS: Clear to Auscultation Heart: irregularly irregular (AFIB ) Abdomen: Soft N/T Extremities: No Edema Neurology: alert, oriented, follow commands Assessment Assessment 1. Dizziness; most probable secondary to RVR 2. New onset AFIB with RVR; remain in AFIB, rate mildly elevated overnight. 3. Hypertension; mildly elevated 4. Hyperlipidemia; LDL 106 5. Elevated glucose; A1C 5.9 6. PUI; COVID PCR negative Recommendations Increase Cardizem to 240mg daily Await echo Continue Eliquis for stroke prophylaxis. Supportive care Follow up in our office with Dr. Pelaez as scheduled Outpatient cardioversion if patient remains in AFIB Consider outpatient ischemic evaluation Justicifation of Admission Dx: Justifications for Admission: Justification of Admission Dx: Yes Comments: AFIB with RVR DANNIELLE DAVALOS APRN Mar 19, 2020 09:16
[2020-03-19] MEDS: hydroCHLOROthiazide 12.5 MG CAPSULE PO SCH (09:18)
[2020-03-19] MEDS: APIXABAN 5 MG TABLET. PO SCH (09:18)
[2020-03-19] MEDS ORDERED: APIX5TAB PO (09:54)
[2020-03-19] MEDS ORDERED: DILT240C33 PO (09:54)
--- NOTE | 2020-03-19 10:06 | PDOC ---
Provider Note Date of Service: DATE: 03/19/20 TIME: 10:06 Provider Note Pt seen.Combined H&P and DC dictated,#[id number]. Justifications for Admission Other Justification TYESHA HUYNH MD Mar 19, 2020 10:06
--- NOTE | 2020-03-19 10:06 | HP ---
ADMIT DATE: 03/18/2020 REASON FOR ADMISSION TO THE HOSPITAL: Dizziness, lightheaded and AFib with RVR. HISTORY OF PRESENT ILLNESS: The patient is a 69-year-old female. The patient has been feeling dizzy, lightheaded and the patient lives at home with her who has Alzheimer's disease and she had a fall the night before and she was stressful and in the morning, she was lightheaded, dizzy and she called her rdsllqy-fl-lyv who was retired , who came and took her blood pressure and it was high and also irregular pulse. The patient was brought to the Emergency Room, was found to have AFib with RVR and the patient was started on Cardizem drip and Lovenox, was admitted to the hospital. Cardiology was consulted. PAST MEDICAL HISTORY: Hypertension, hyperlipidemia, occasional asthma and obesity. PAST SURGICAL HISTORY: Hysterectomy. FAMILY HISTORY: Heart disease in parents. SOCIAL HISTORY: Lives at home with her . Denies smoking. Social alcohol. Denies any drugs. ALLERGIES: No known drug allergies. MEDICATIONS: She is on Altace, Lipitor and hydrochlorothiazide. REVIEW OF SYSTEMS: A 14-system review was done. Denies any chest pain, only some palpitations, some dizziness, feels lightheaded like room spinning. No other weakness. The rest of the 14-system was reviewed and negative. PHYSICAL EXAMINATION: GENERAL: The patient is pleasant, not in any distress. VITAL SIGNS: At the time of admission shows a temperature 99, pulse 143, respirations 20, blood pressure 144/90, 97 on room air. HEENT: Head is atraumatic. Pupils equal. Oral cavity: No congestion. NECK: Supple. Thyroid not enlarged. JVD not elevated. CHEST: Symmetrical. CARDIOVASCULAR: S1, S2. LUNGS: Clear. ABDOMEN: Soft, bowel sounds present, no mass palpable. EXTERNAL GENITALIA: No Davis. RECTAL: Deferred. EXTREMITIES: No calf tenderness, no edema. NEUROLOGIC: No focal deficits. Moving all extremities. No nystagmus. No ear infection. LABORATORY DATA: Shows a chest x-ray was negative. EKG: AFib with RVR and other laboratory data white count CBC was normal. INR 1.1. Chem profile unremarkable. BUN and creatinine were normal. Glucose 113 and cholesterol 219 and LDL 106, HDL 82. TSH was 1.2. A1c 5.9. Troponin was negative. COVID test was negative. FINAL IMPRESSION: 1. Dizziness secondary to atrial fibrillation with rapid ventricular response. 2. Hypertension. 3. Hyperlipidemia. 4. Obesity. PLAN: At this time, was admitted to the hospital, was put on Cardizem drip, seen by Cardiology, echocardiogram. The patient was started on Eliquis for anticoagulation and will complete workup including CT head, carotid Doppler. Probably could be discharged home and outpatient cardioversion for AFib. In the meantime, continue Eliquis and Cardizem. TYESHA HUYNH MD DR: HUEY/faustino JOB#: [id number] / [id number]
--- NOTE | 2020-03-19 10:09 | RAD ---
EXAM: CT HEAD WITHOUT CONTRAST. HISTORY: Dizziness, headaches. TECHNIQUE: Computed tomography of the head was performed without intravenous contrast. One or more of the following individualized dose reduction techniques were utilized for this examination: 1. Automated exposure control. 2. Adjustment of the mA and/or kV according to patient size. 3. Use of iterative reconstruction technique. COMPARISON: None. FINDINGS: There is no intracranial hemorrhage. Hypoattenuation within the periventricular white matte r indicates mild chronic microangiopathic change. The ventricles are normal in size and position for patient age. The visualized paranasal sinuses appear clear. The orbits are unremarkable. The temporal bones are un remarkable. The calvarium reveals no suspicious lesions. There are atherosclerotic calcifications of the internal carotid arteries. IMPRESSION: 1. No acute intracranial findings. 2. Mild chronic microangiopathic white matter change. Electronically signed by: Anu Lombardo MD (03/19/2020 10:07 AM) [id number]
[2020-03-19 11:00] VITALS: BP 184/90
--- NOTE | 2020-03-19 11:21 | NUR ---
SS following for discharge planning. SS reviewed pt chart and discussed with pt RN. Pt is from home with spouse and is currently on room air. COVID19 negative. Discharge order on the chart for home with self care.
--- NOTE | 2020-03-19 11:52 | RAD ---
EXAM: CAROTID DOPPLER SONOGRAM. HISTORY: Dizziness, vertigo.. TECHNIQUE: Santiago scale and color Doppler sonographic evaluation of the neck with spectral waveform ramon lysis was performed and static images are submitted for review. FINDINGS: RIGHT: The peak systolic velocity within the common carotid artery is 48 cm/sec. The peak systolic ve locity within the internal carotid artery is 57 cm/sec and the end diastolic velocity within the inte rnal carotid artery is 21 cm/sec. The ICA/CCA ratio is 0.89. Grayscale images demonstrate no grayscal e stenosis. LEFT: The peak systolic velocity within the common carotid artery is 38 cm/sec. The peak systolic mariajose ocity within the internal carotid artery is 59 cm/sec and the end diastolic velocity within the inter nal carotid artery is 26 cm/sec. The ICA/CCA ratio is 1.55. Grayscale images demonstrate no grayscale stenosis. There is antegrade flow within both vertebral arteries. IMPRESSION: 1. No evidence of hemodynamically significant stenosis. PQRS Compliance Statement - Stenosis calculations for CT, MR and conventional angiography are based u roberto measurement of the distal ICA diameter in accordance with the NASCET methodology. Stenosis calcu lations for carotid ultrasound studies are derived from validated velocity criteria which are known t o correlate with the NASCET methodology. Electronically signed by: Anu Lombardo MD (03/19/2020 11:49 AM) [id number]
--- NOTE | 2020-03-19 14:03 | CARD ---
MR#: [id number] Date of Study: 03/19/2020 Ordering Physician: DANNIELLE DAVALOS, Referring Physician: DANNIELLE DAVALOS, Tech: Ekta Daljanadoroteo, [facility] APPROVED REPORT EXAM: Two-dimensional and M-mode echocardiogram with Doppler and color Doppler. Other Information Quality : AverageHR: 77bpm Technically limited study due to body habitus. INDICATION Atrial Fibrillation 2D DIMENSIONS RVDd3.3 (2.9-3.5cm)Left Atrium(2D)3.7 (1.6-4.0cm) IVSd0.9 (0.7-1.1cm)Aortic Root(2D)2.7 (2.0-3.7cm) LVDd4.7 (3.9-5.9cm)LVOT Diameter2.1 (1.8-2.4cm) PWd0.9 (0.7-1.1cm)LVDs2.8 (2.5-4.0cm) FS (%) 39.4 %SV71.1 ml Aortic Valve AoV Peak Addy.113.1cm/sAoV VTI20.2cm AO Peak GR.5.1mmHgLVOT Peak Addy.91.7cm/s LVOT VTI 16.21cmAO Mean GR.3mmHg CHARLES (VMAX)1.53lp6JCV (VTI)2.71cm2 Mitral Valve MV E Fzgnxspq60.4cm/sMV DECEL VPXA853dl MV A Bnrbkozy02.7cm/sMV SYV52qk E/A Ratio2.7MVA (PHT)4.42cm2 TDI E/Lateral E'7.1E/Medial E'10.8 Pulmonary Valve PV Peak Llpvfymv22.7cm/sPV Peak Grad.2mmHg Tricuspid Valve TR P. Iuwxjvup360aa/sRAP NLCUIYMR1bcXj TR Peak Gr.71fgWgVGDQ19ebKc LEFT VENTRICLE The left ventricle is normal size. There is normal left ventricular wall thickness. The left ventricu lar systolic function is normal and the ejection fraction is within normal range. The Ejection Fracti on is 50-55%. Wall motion consistent with conduction abnormality. The left ventricular diastolic func tion and filling is normal for age. RIGHT VENTRICLE The right ventricle is normal size. There is normal right ventricular wall thickness. The right ventr icular systolic function is normal. ATRIA The left atrium is mildly dilated. The right atrium is mildly dilated. The interatrial septum is inta ct with no evidence for an atrial septal defect or patent foramen ovale as noted on 2-D or Doppler im aging. AORTIC VALVE The aortic valve is normal in structure and function. Doppler and Color Flow revealed no significant aortic regurgitation. There is no significant aortic valvular stenosis. Calculated aortic valve area is 2.92 cm2 with maximum pressure gradient of 6 mmHg and mean pressure gradient of 3 mmHg. MITRAL VALVE The mitral valve is normal in structure and function. There is no evidence of mitral valve prolapse. There is no mitral valve stenosis. Doppler and Color-flow revealed trace mitral regurgitation. TRICUSPID VALVE The tricuspid valve is normal in structure and function. Doppler and Color Flow revealed trace tricus pid regurgitation with an estimated PAP of 26 mmHg. There is no tricuspid valve stenosis. PULMONIC VALVE The pulmonic valve is not well visualized. Doppler and Color Flow revealed trace pulmonic valvular re gurgitation. GREAT VESSELS The aortic root is normal in size. The IVC is normal in size and collapses >50% with inspiration. PERICARDIAL EFFUSION There is no evidence of significant pericardial effusion. Critical Notification Critical Value: No <Conclusion> The left ventricle is normal size. The left ventricular systolic function is normal and the ejection fraction is within normal range. The Ejection Fraction is 50-55%. Wall motion consistent with conduction abnormality. Doppler and Color Flow revealed no significant aortic regurgitation. There is no significant aortic valvular stenosis. Doppler and Color-flow revealed trace mitral regurgitation. Doppler and Color Flow revealed trace tricuspid regurgitation with an estimated PAP of 26 mmHg. Signed by : Malik Brar MD Electronically Approved : 03/19/2020 14:03:01
[2020-03-19 14:15] VITALS: BP 165/90
[2020-03-19] MEDS ORDERED: dilTIAZem HCL 30 MG TABLET PO ONE (14:15)
[2020-03-19] MEDS ORDERED: DILT300C24 PO (14:36)
--- NOTE | 2020-03-19 15:25 | NUR ---
DISCHARGED PATIENT HOME. DISCHARGE INSTRUCTIONS GIVEN. PIV AND HEART MONITOR REMOVED. ESCORTED PATIENT OFF UNIT PER PATIENT AMBULATION INTO A PRIVATE VEHICLE.
--- NOTE | 2020-03-22 11:25 | PDOC ---
Provider Note Date of Service: DATE: 03/22/20 TIME: 11:24 Provider Note Discharge summary dictated.#[id number]. Justifications for Admission Other Justification TYESHA HUYNH MD Mar 22, 2020 11:25
--- NOTE | 2020-03-22 11:36 | DS ---
DATE OF DISCHARGE: 03/19/2020 REASON FOR ADMISSION TO THE HOSPITAL: AFib with RVR, dizziness. CONSULTATIONS: Malik Pelaez MD PROCEDURES DONE: Echocardiogram, carotid Doppler, CT head. HOSPITAL COURSE: The patient is a 69-year-old female with history of obesity, hypertension, and hyperlipidemia. She was feeling dizzy, lightheaded and she called her ucdvufi-np-duv who is a retired physician who checked her pulse was rapid, was sent to the Emergency Room, found to have atrial fibrillation with rapid ventricular response of 140 and the patient was put on IV Cardizem drip to control heart rate. Cardiology was consulted. The patient was given dose of Lovenox, was started on Eliquis for anticoagulation. The patient had echocardiogram, shows a good left ventricular function. Carotid Doppler negative for stenosis. CT head negative for acute stroke. It was decided that the patient could be discharged home on anticoagulation with Eliquis for 4 weeks and probably needs cardioversion in 4 weeks. The patient was discharged on Eliquis and Cardizem to control heart rate. FINAL DIAGNOSES: 1. Atrial fibrillation with rapid ventricular response. 2. Hypertension. 3. Hyperlipidemia. 4. Obesity. Her thyroid functions and cholesterol were reasonably normal range. PLAN: To anticoagulate with Eliquis for 4 weeks and do cardioversion in 4 weeks outpatient. The patient was discharged home. TYESHA HUYNH MD DR: HUEY/faustino JOB#: [id number] / [id number]
[2020-05-01] MEDS ORDERED: CHOL40003 PO (16:20)
[2020-05-01] MEDS ORDERED: FOLI0.4T5 PO (16:20)
== END 2020-03-19 15:25 | disposition home or self-care (01) | DRG 310 ==
LOC: ER 10:00 → 2 SOUTH 11:00
PROVIDERS: ADMIT Internal Medicine; ATTEND Internal Medicine
DX: I48.91 Unspecified atrial fibrillation (principal); E78.00 Pure hypercholesterolemia, unspecified; E78.5 Hyperlipidemia, unspecified; I10 Essential (primary) hypertension; J45.909 Unspecified asthma, uncomplicated; E66.9 Obesity, unspecified; Z20.822 Contact with and (suspected) exposure to COVID-19; Z90.710 Acquired absence of both cervix and uterus; Z90.49 Acquired absence of other specified parts of digestive tract; Z82.49 Family history of ischemic heart disease and other diseases of the circulatory system; Z68.35 Body mass index [BMI] 35.0-35.9, adult; Z79.899 Other long term (current) drug therapy
CPT/HCPCS: 36415; 70450; 71045; 80048; 80053; 80061; 83036; 83880; 84443; 84484; 85025; 85610; 85730; 93005; 93306; 93880; 96365; 96372; 96375; 99285; J1650; J3490; U0003; 97110-GP; G0378

== ENCOUNTER → 2020-05-01 | Outpatient (CLI) | payer MEDICARE, BC ==
[~2020-05-01] MED LIST: APIX5TAB PO; ATOR10TA PO; CHOL40003 PO; DILT240C33 PO; DILT300C24 PO; FOLI0.4T5 PO; HYDR12.575 PO; RAMI2.5C41 PO
== END ==
LOC: LAB 11:24
PROVIDERS: ATTEND Internal Medicine Cardiovascular Disease
DX: Z01.812 Encounter for preprocedural laboratory examination (principal); I48.91 Unspecified atrial fibrillation; Z20.822 Contact with and (suspected) exposure to COVID-19
CPT/HCPCS: U0003

== ENCOUNTER 2020-05-05 09:06 | Day surgery (SDC) | payer MEDICARE, BC ==
[~2020-05-05 09:06] MED LIST changes: +IV RINGERS,LACTATED 1000ML 1,000 ML IV SCH
[2020-05-05] MEDS ORDERED: PROPOFOL 0 ML IV ONE (09:40)
[2020-05-05] MEDS ORDERED: PROPOFOL 10 MG/ML (20ML) VIAL. IV ONE (09:51)
--- NOTE | 2020-05-05 09:59 | EKG ---
[facility] [address] [place] [address] Test Date: 2020-05-05 Test Time: 09:54:35 Pat Name: HUBER MESSINA Department: Room: Gender: F Federal Law Clerk: : 1950 Requested By: AMAN POWELL Order Number: [id number] Reading MD: Measurements Intervals [place] Rate: 72 P: OR: QRS: 3 QRSD: 74 T: 215 QT: 406 QTc: 446 Interpretive Statements IRREGULAR RHYTHM, NO P-WAVE FOUND T ABNORMALITY IN ANTERIOR LEADS LATERAL LEADS INFEROLATERAL LEADS ABNORMAL ECG RI6.02 Compared to ECG 03/18/2020 10:08:19 Possible ischemia no longer present T-wave abnormality still present
[2020-05-05 10:17] LABS: CREATININE 0.8 mg/dL (0.6-1.0); GFR 85.6; MAGNESIUM 2.1 mg/dL (1.8-2.4); POTASSIUM 3.8 mmol/L (3.5-5.1)
--- NOTE | 2020-05-05 11:03 | EKG ---
[facility] [address] [place] [address] Test Date: 2020-05-05 Test Time: 10:58:39 Pat Name: HUBER MESSINA Department: Room: Gender: F Curriculum Writer: : 1950 Requested By: AMAN POWELL Order Number: [id number] Reading MD: Measurements Intervals [place] Rate: 62 P: 56 MO: 166 QRS: 6 QRSD: 78 T: 129 QT: 412 QTc: 420 Interpretive Statements SINUS RHYTHM T ABNORMALITY IN LATERAL LEADS ABNORMAL ECG RI6.02 Compared to ECG 05/05/2020 09:54:35 No significant changes
[2020-05-05 11:56] VITALS: BP 156/74
--- NOTE | 2020-05-05 16:58 | PDOC4 ---
PROCEDURE Procedure Procedure. Electrical cardioversion. Diagnosis. Atrial fibrillation. The patient is a pleasant 70-year-old female who was found to have atrial fibrillation. Patient remained in atrial fibrillation 100% of monitoring time. She was started on anticoagulation greater than 4 weeks ago. Compliance with anticoagulation was check with the patient prior to the procedure. Baseline laboratory this morning also was within normal limits including a normal pota ssium level. Risks and benefits of a cardioversion for atrial fibrillation were again discussed with the patient. She gave consent to the procedure. She was then reviewed by the anesthesiology service. After review the patient was treated by them for an appropriate level of sedation. Initial attempted cardioversion was with 200 J synchronized energy which was not successful. A second attempt with 250 J of synchronized energy was successful and converted her to a sinus rhythm. She awoke normally from her sedation. She remained in sinus rhythm. She will be continued on present medications including anticoagulation and follow-up in the office in approximately 3 weeks. Conclusion. Successful cardioversion of atrial fibrillation to a sinus rhythm.. AMAN POWELL MD May 05, 2020 16:58
== END 2020-05-05 12:30 | disposition home or self-care (01) ==
LOC: SURG 09:06
PROVIDERS: ATTEND Internal Medicine Cardiovascular Disease
DX: I48.91 Unspecified atrial fibrillation (principal); R94.31 Abnormal electrocardiogram [ECG] [EKG]; E78.00 Pure hypercholesterolemia, unspecified; I10 Essential (primary) hypertension; J45.909 Unspecified asthma, uncomplicated; Z90.710 Acquired absence of both cervix and uterus; Z98.890 Other specified postprocedural states; Z79.899 Other long term (current) drug therapy; Z72.89 Other problems related to lifestyle
CPT/HCPCS: 36415; 80048; 83735; 92960; 93005; J2704